=== PATIENT | male | born 1945 | race Caucasian/White ===

== ENCOUNTER → 2016-10-27 | Outpatient (CLI) | payer MEDICARE, OTHER ==
[~2016-10-27] MED LIST: ASPI-906 PO; DCS100C PO; GEMF600T3 PO; HYDR-3454 PO; HYDR-3583 PO; HYDR1TAB8 OP; LEVO500T69 PO; MTF500T PO
--- OUTSIDE RECORDS SUMMARY | 2016-10-27 10:05 | XMS REPORT | Continuity of Care Document ---
Author Author [facility] Organization [facility] Address Unknown Phone Unavailable Care Team Providers Care Traveling Crane Operator Name Role Phone Oscar Ho PCP [phone] Source Comments Some departments are not documenting in the electronic medical record. If you do not see the information that you expected, contact Release of Information in the Health Information Management department at [phone] for further assistance in locating additional records.[facility] Active Allergies and Adverse Reactions No Known Allergies Current Medications Prescription Sig. Disp. Refills Start End Date Status Date gemfibrozil (LOPID) 600 Take 600 mg by mouth Active mg tablet daily. Take two daily METFORMIN HCL (METFORMIN Take by mouth daily. Active PO) Take two daily Active Problems No known active problems Social History Tobacco Use Types Packs/Day Years Used Date Never Assessed Last Filed Vital Signs Vital Sign Reading Time Taken Blood Pressure 142/118 12/07/2012 12:37 PM CDT Pulse 70 12/07/2012 12:37 PM CDT Temperature 36.5 C (97.7 F) 12/07/2012 10:51 AM CDT Respiratory Rate - - Height 1.626 m (5' 4") 12/07/2012 10:51 AM CDT Weight 59.875 kg (132 lb) 12/07/2012 10:51 AM CDT Body Mass Index 22.65 12/07/2012 10:51 AM CDT Oxygen Saturation 99% 12/07/2012 12:37 PM CDT Plan of Care Health Maintenance Due Date Last Done Comments Hepatitis C Screening 1945 Physical (Comprehensive) 1952 Exam Pertussis Vaccine 1956 Tetanus Vaccine 1962 Shingles Vaccine 2005 Prevnar/Pneumovax (#1) 2010 Influenza Vaccine 04/21/2016 Colorectal Cancer 06/29/2025 06/29/2015, 12/07/2012, 12/07/2012 Screening Results from Last 3 Months Not on file
--- NOTE | 2016-10-27 16:26 | Diagnostic Imaging Report ---
PA and lateral chest at 10:07 a.m. INDICATION: Cough. FINDINGS: There are no prior studies available for comparison. The heart size is within normal limits. The lungs are clear. There is no sign of failure, pneumonia, or pleural effusion to suggest an acute abnormality. The mediastinum is not widened. The osseous structures are intact. IMPRESSION: There is no evidence for an acute cardiopulmonary abnormality. Dictated by: Dictated on workstation # [id number]
== END ==
LOC: RAD 10:02
PROVIDERS: ATTEND Internal Medicine
DX: R05 Cough (principal)
CPT/HCPCS: 71020

== ENCOUNTER 2017-09-04 00:39 | Emergency (ER) | payer MEDICARE, OTHER ==
[~2017-09-04] VITALS: Ht 162.6 cm; Wt 61.2 kg
--- OUTSIDE RECORDS SUMMARY | 2017-09-04 00:54 | XMS REPORT | Clinical Summary ---
Author Author [facility] Organization [facility] Address Unknown Phone Unavailable Care Team Providers Care Silviculturist Name Role Phone PCP Unavailable Source Comments Some departments are not documenting in the electronic medical record. If you do not see the information that you expected, contact Release of Information in the Health Information Management department at [phone] for further assistance in locating additional records.[facility] Allergies No Known Allergies Current Medications Prescription Sig. Disp. Refills Start End Date Status Date gemfibrozil (LOPID) 600 Take 600 mg by mouth Active mg tablet daily. Take two daily METFORMIN HCL (METFORMIN Take by mouth daily. Active PO) Take two daily Active Problems No known active problems Social History Tobacco Use Types Packs/Day Years Used Date Never Assessed Sex Assigned at Date Recorded Not on file Last Filed Vital Signs Vital Sign Reading Time Taken Blood Pressure 142/118 12/07/2012 12:37 PM CDT Pulse 70 12/07/2012 12:37 PM CDT Temperature 36.5 C (97.7 F) 12/07/2012 10:51 AM CDT Respiratory Rate - - Oxygen Saturation 99% 12/07/2012 12:37 PM CDT Inhaled Oxygen - - Concentration Weight 59.9 kg (132 lb) 12/07/2012 10:51 AM CDT Height 162.6 cm (5' 4") 12/07/2012 10:51 AM CDT Body Mass Index 22.66 12/07/2012 10:51 AM CDT Plan of Treatment Health Maintenance Due Date Last Done Comments HEPATITIS C SCREENING 1945 PHYSICAL (COMPREHENSIVE) 1952 EXAM PERTUSSIS VACCINE 1956 TETANUS VACCINE 1962 SHINGLES VACCINE 2005 PREVNAR/PNEUMOVAX (#1) 2010 INFLUENZA VACCINE 03/21/2017 COLORECTAL CANCER 06/29/2025 06/29/2015, 12/07/2012, 12/07/2012 SCREENING Results Not on filefrom Last 3 Months
--- OUTSIDE RECORDS SUMMARY | 2017-09-04 00:55 | XMS REPORT | Continuity of Care Document ---
Author Author [facility] Organization [facility] Address Unknown Phone Unavailable Allergies Active Description Code Type Severity Reaction Onset Reported/Identified Relationship to Patient Clinical Status Yes No Known Drug Allergies [id number] Drug Allergy Unknown N/A 10/14/2011 Medications There is no data. Problems Date Dx Coded Attending Type Code Diagnosis Diagnosed By 10/14/2011 Ot 211.3 10/14/2011 Ot 250.00 10/14/2011 Ot V76.51 11/17/2011 Ot 211.3 11/17/2011 Ot 250.00 11/17/2011 Ot 272.0 11/17/2011 Ot 275.2 11/17/2011 Ot 285.1 11/17/2011 Ot 998.11 02/18/2014 ASHLYN MCCARTNEY DO Ot 250.00 02/18/2014 ASHLYN MCCARTNEY DO Ot 574.20 02/18/2014 ASHLYN MCCARTNEY DO Ot 592.0 02/18/2014 ASHLYN MCCARTNEY DO Ot 599.70 02/18/2014 ASHLYN MCCARTNEY DO Ot V58.62 02/18/2014 ASHLYN MCCARTNEY DO Ot V58.69 05/13/2014 ANU DELGADILLO DO Ot 401.9 HYPERTENSION NOS 05/13/2014 ANU DELGADILLO DO Ot 574.20 CHOLELITHIASIS NOS 05/13/2014 ANU DELGADILLO DO Ot 575.0 ACUTE CHOLECYSTITIS 12/24/2014 GHAZALA RUBIO DO Ot 814.06 FX TRAPEZOID BONE-CLOSED 12/24/2014 GHAZALA RUBIO DO Ot 816.00 FX PHALANX, HAND NOS-CL 12/24/2014 GHAZALA RUBIO DO Ot 959.5 FINGER INJURY NOS 12/24/2014 GHAZALA RUBIO DO Ot E000.8 OTHER EXTERNAL CAUSE STATUS 12/24/2014 GHAZALA RUBIO DO Ot E849.0 ACCIDENT IN HOME 12/24/2014 GHAZALA RUBIO DO Ot E885.9 FALL FROM SLIPPING, TRIPPING, OR STUMBLI 12/26/2014 Ot V72.84 12/26/2014 Ot 211.3 12/26/2014 Ot V72.63 10/27/2016 Ot R05 COUGH 11/23/2016 Ot R05 COUGH 02/08/2017 Ot R05 COUGH Procedures There is no data. Results There is no data. Encounters ACCT No. Visit Date/Time Discharge Status Pt. Type Provider Facility Loc./Unit Complaint [id number] 12/23/2014 23:57:00 12/24/2014 01:20:00 DIS Emergency GHAZALA RUBIO DO [facility] ER RT HAND/THUMB PAIN [id number] 05/12/2014 02:55:00 05/13/2014 19:27:00 DIS Outpatient ANU DELGADILLO DO [facility] SDC RUQ PAIN [id number] 02/18/2014 16:10:00 02/18/2014 19:33:00 DIS Emergency ASHLYN MCCARTNEY DO [facility] ER [id number] 01/03/2013 11:18:00 01/03/2013 23:59:59 CLS Outpatient [id number] 09/04/2017 00:51:00 ACT Emergency JULIENNE WOMACK MD [facility] ER CHEST PAIN DIZZY [id number] 10/27/2016 10:02:00 Document Registration [id number] 11/10/2011 05:52:00 Document Registration [id number] 11/03/2011 09:18:00 Document Registration [id number] 10/14/2011 11:31:00 Document Registration [id number] 10/12/2011 08:27:00 Document Registration
[2017-09-04] MEDS ORDERED: ASPIRIN 81 MG CHEW (CHILDREN'S ASA) PO ONE (01:00)
[2017-09-04 01:11] LABS: BASOPHILS % (AUTO) 1 % (0-10); EOSINOPHILS # (AUTO) 0.2 10^3/uL (0.0-0.3); EOSINOPHILS % (AUTO) 3 % (0-10); HEMATOCRIT 41 % (40-54); LYMPHOCYTES # (AUTO) 3.5 X 10^3 (1.0-4.0); LYMPHOCYTES % (AUTO) 43 % (12-44); MEAN CORPUSCULAR HEMOGLOBIN 32 PG (25-34); MEAN CORPUSCULAR HGB CONC 36 G/DL (32-36); MEAN CORPUSCULAR VOLUME 88 FL (80-99); MEAN PLATELET VOLUME 9.7 FL (7.4-10.4); MONOCYTES # (AUTO) 0.7 X 10^3 (0.0-1.0); MONOCYTES % (AUTO) 9 % (0-12); NEUTROPHILS # (AUTO) 3.6 X 10^3 (1.8-7.8); NEUTROPHILS % (AUTO) 45 % (42-75); PLATELET COUNT 235 10^3/uL (130-400); RED BLOOD COUNT 4.71 10^6/uL (4.35-5.85); RED CELL DISTRIBUTION WIDTH 12.7 % (10.0-14.5)
--- NOTE | 2017-09-04 01:12 | ED Chest Pain ---
General Chief Complaint: Chest Pain Stated Complaint: CHEST PAIN DIZZY Nursing Triage Note: PT TO ED 3 W/ C/O CHEST PAIN, INTERMITTENT, X1WK, WORSE THIS EVENING HE STATES "HE CAN'T SLEEP" DUE TO DISCOMFORT. DENIES SOB, N/V, DIAPHORESIS Nursing Sepsis Screen: No Definite Risk Source: patient Exam Limitations: no limitations History of Present Illness Time seen by provider: 00:48 Initial Comments Here with reports of central chest pain that comes on for a little bit the goes away. Describes it as an ache. Nonradiating. Denies nausea, vomiting, diaphoresis or shortness of breath. States he's had increasing episodes of this over the last week. They're coming more frequently. Also concerned about high blood pressure. States his doctor told him that he might have high blood pressure and may need treatment for that but has not started blood pressure treatment as of yet. Timing/Duration: 1 week, changing over time, intermittent Severity/Quality: moderate, aching Location: central Radiation: no radiation Activities at Onset: none Prior CP/Workup: no prior cardiac workup ASA po MEDICAL REVIEW SPECIALIST: Yes (81 mg) NTG SL MEDICAL REVIEW SPECIALIST: No Associated Symptoms: No abdominal pain, No back pain, No fever/chills, No shortness of breath Allergies and Home Medications Allergies Coded Allergies: No Known Drug Allergies (Unverified , 10/14/11) Home Medications Aspirin 81 Mg Tab.chew, 81 MG PO DAILY @ 1800, (Reported) Gemfibrozil 600 Mg Tablet, 600 MG PO BID, (Reported) Hydrocodone Bit/Ibuprofen 1 Each Tablet, 1 EACH OP Q 4 - 6 HRS PRN PRN for PAIN , #20 Prescribed by: GHAZALA RUBIO on 12/24/14 0114 Metformin Hcl 500 Mg Tablet, 500 MG PO BID, (Reported) Review of Systems Constitutional: see HPI, No chills, No fever, No weakness EENTM: No Symptoms Reported Respiratory: No Symptoms Reported, Denies Shortness of Air, Denies Wheezing Cardiovascular: See HPI, Chest Pain, Denies Irregular Heart Rate Gastrointestinal: No Symptoms Reported, Denies Nausea, Denies Vomiting Genitourinary: No Symptoms Reported Musculoskeletal: no symptoms reported Skin: no symptoms reported All Other Systems Reviewed Negative Unless Noted: Yes Past Tsvpbkc-Yqonow-Xvykek Hx Patient Social History Alcohol Use: Denies Use Recreational Drug Use: No Smoking Status: Never a Smoker Recent Foreign Travel: No Contact w/Someone Who Travel: No Recent Infectious Disease Expo: No Recent Hopitalizations: No Physical Abuse: No Sexual Abuse: No Mistreated: No Fear: No Immunizations Up To Date Date of Influenza Vaccine: May 21, 2010 Surgeries History of Surgeries: Yes (HERNIA, COLON REPAIR) Surgeries: Abdominal, Gallbladder Respiratory History of Respiratory Disorde: No Cardiovascular History of Cardiac Disorders: Yes Cardiac Disorders: High Cholesterol Neurological History of Neurological Disord: No Reproductive System Hx Reproductive Disorders: No Gastrointestinal History of Gastrointestinal Di: No Musculoskeletal History of Musculoskeletal Dis: No Endocrine History of Endocrine Disorders: Yes Endocrine Disorders: Diabetes, Non-Insulin dep Cancer History of Cancer: No Psychosocial History of Psychiatric Problem: No Suicide Risk Score: 0 Blood Transfusions History of Blood Disorders: No Reviewed Nursing Assessment Reviewed/Agree w Nursing PMH: Yes Family Medical History Significant Family History: No Pertinent Family Hx Physical Exam Vital Signs Vital Sign - Last 12Hours 09/04/17 00:39 Temp 97.1 Pulse 68 Resp 20 B/P (MAP) 189/106 (133) Pulse Ox 96 O2 Delivery Room Air Capillary Refill : Less Than 3 Seconds General Appearance: No Apparent Distress, WD/WN HEENT: PERRL/EOMI, Pharynx Normal Neck: Non Tender, Supple Respiratory: Lungs Clear, Normal Breath Sounds Cardiovascular: Regular Rate, Rhythm, No Murmur Gastrointestinal: Non Tender, Soft Extremity: Normal Range of Motion, Non Tender Neurologic/Psychiatric: Alert, Oriented x3 Skin: Normal Color, Warm/Dry Progress/Results/Core Measures Results/Orders Lab Results Laboratory Tests Test 09/04/17 01:01 09/04/17 03:25 Range/Units White Blood Count 8.0 4.3-11.0 10^3/uL Red Blood Count 4.71 4.35-5.85 10^6/uL Hemoglobin 15.0 13.3-17.7 G/DL Hematocrit 41 40-54 % Mean Corpuscular Volume 88 80-99 FL Mean Corpuscular Hemoglobin 32 25-34 PG Mean Corpuscular Hemoglobin Concent 36 32-36 G/DL Red Cell Distribution Width 12.7 10.0-14.5 % Platelet Count 235 130-400 10^3/uL Mean Platelet Volume 9.7 7.4-10.4 FL Neutrophils (%) (Auto) 45 42-75 % Lymphocytes (%) (Auto) 43 12-44 % Monocytes (%) (Auto) 9 0-12 % Eosinophils (%) (Auto) 3 0-10 % Basophils (%) (Auto) 1 0-10 % Neutrophils # (Auto) 3.6 1.8-7.8 X 10^3 Lymphocytes # (Auto) 3.5 1.0-4.0 X 10^3 Monocytes # (Auto) 0.7 0.0-1.0 X 10^3 Eosinophils # (Auto) 0.2 0.0-0.3 10^3/uL Basophils # (Auto) 0.0 0.0-0.1 10^3/uL Prothrombin Time 14.5 12.2-14.7 SEC INR Comment 1.1 0.8-1.4 Activated Partial Thromboplast Time 32 24-35 SEC Sodium Level 139 135-145 MMOL/L Potassium Level 4.0 3.6-5.0 MMOL/L Chloride Level 104 98-107 MMOL/L Carbon Dioxide Level 23 21-32 MMOL/L Anion Gap 12 5-14 MMOL/L Blood Urea Nitrogen 22 H 7-18 MG/DL Creatinine 1.04 0.60-1.30 MG/DL Estimat Glomerular Filtration Rate > 60 BUN/Creatinine Ratio 21 Glucose Level 176 H 70-105 MG/DL Calcium Level 9.8 8.5-10.1 MG/DL Magnesium Level 2.3 1.8-2.4 MG/DL Total Bilirubin 0.4 0.1-1.0 MG/DL Aspartate Amino Transf (AST/SGOT) 18 5-34 U/L Alanine Aminotransferase (ALT/SGPT) 16 0-55 U/L Alkaline Phosphatase 90 40-136 U/L Myoglobin 22.1 10.0-92.0 NG/ML Troponin I < 0.30 < 0.30 <0.30 NG/ML Total Protein 7.6 6.4-8.2 GM/DL Albumin 4.4 3.2-4.5 GM/DL My Orders Orders - JULIENNE WOMACK MD Cbc With Automated Diff (09/04/17 00:49) Magnesium (09/04/17 00:49) Ekg Tracing (09/04/17 00:49) Cardiac Profile 1 (09/04/17 00:49) Comprehensive Metabolic Panel (09/04/17 00:49) Myoglobin Serum (09/04/17 00:49) Protime With Inr (09/04/17 00:49) Partial Thromboplastin Time (09/04/17 00:49) O2 (09/04/17 00:49) Monitor-Rhythm Ecg Trace Only (09/04/17 00:49) Lipid Panel (09/05/17 06:00) Aspirin Chewable Tablet (Baby Aspirin Ch (09/04/17 01:00) Saline Lock/Iv-Start (09/04/17 00:49) Metoprolol Succinate (Xl) Tab (Toprol Xl (09/04/17 01:15) Chest 1 View, Ap/Pa Only (09/04/17 ) Ekg Tracing (09/04/17 03:05) Troponin I (09/04/17 03:05) Medications Given in ED Current Medications Medications Dose Ordered Sig/Yuliana Route Start Time Stop Time Status Last Admin Dose Admin Aspirin 324 mg ONCE ONCE PO 09/04/17 01:00 09/04/17 01:01 DC 09/04/17 01:01 324 MG Vital Signs/I&O Vital Sign - Last 12Hours 09/04/17 00:39 Temp 97.1 Pulse 68 Resp 20 B/P (MAP) 189/106 (133) Pulse Ox 96 O2 Delivery Room Air Blood Pressure Mean: 133 Progress Note : Progress Note Seen and evaluated. Chest pain protocol initiated. ASA 324 mg by mouth, labs, EKG, chest x-ray and IV initiated. No pain right now so no nitroglycerin ordered. Monitor patient. Toprol-XL 50 mg by mouth ordered. Monitor patient. Blood pressure improved significantly after Toprol-XL. Monitor patient. 0230 : Pain remains resolved and blood pressure improved. We will repeat troponin and EKG. 0400: Blood pressure 133/83 and heart rate of 55. Remains pain free. Repeat troponin and EKG remain negative for acute DE. Discharged home with return precautions. Patient verbalize understanding instructions and agreement with plan. ECG Initial ECG Impression Date: Sep 04, 2017 Initial ECG Impression Time: 00:50 Initial ECG Rate: 70 Initial ECG Rhythm: Normal Sinus Comment Sinus rhythm with normal axis. No evidence of ST elevation DE. No previous available for comparison. Interpreted by me. EKG : EKG Time: 03:18 Rate: 59 Rhythm: Normal Sinus ECG Comparisson: Unchanged ECG Impression: Normal Comment Sinus rhythm with normal axis. No evidence of ST elevation DE. Similar to previous done earlier today. Interpreted by me. Diagnostic Imaging Diagonstic Imaging: Xray Plain Films/CT/US/NM/MRI: chest Comments No acute findings Departure Impression Impression: Primary Impression: Chest pain Qualified Codes: R07.9 - Chest pain, unspecified Additional Impression: Hypertension Qualified Codes: I10 - Essential (primary) hypertension Disposition: HOME, SELF-CARE Condition: Improved Departure-Patient Inst. Decision time for Depature: 04:06 Referrals: JOSE ARANGO MD FACP FACC CCDS Abel DURAN MD, BASHAR J MD TAYLOR, JOHN D MD (PCP/Family) Primary Care Physician Patient Instructions: Chest Pain (DC) Add. Discharge Instructions: All discharge instructions reviewed with patient and/or family. Voiced understanding. Take medications as directed. Follow-up with your Dr. in one to 2 days for recheck and further evaluation. Follow-up with Dr. Duran or market research coordinator of your choice within one week for recheck and further evaluation. Return for worse pain, fever, vomiting, weakness, breathing problems or other concerns as needed. Scripts Metoprolol Succinate (Toprol Xl) 25 Mg Tab.er.24h 25 MG PO DAILY for 30 Days, #30 TAB Prov: JULIENNE WOMACK MD 09/04/17 Copy Copies To 1: ISAIAS CARNEY MD, TIMOTHY D MD Sep 04, 2017 01:12
[2017-09-04] MEDS ORDERED: meTOproloL SUCCINATE 50 MG (TOPROL XL) TAB PO SCH (01:15)
[2017-09-04 01:20] LABS: INR 1.1 (0.8-1.4); PROTHROMBIN TIME PATIENT 14.5 SEC (12.2-14.7)
[2017-09-04 01:28] LABS: ALANINE AMINOTRANSFERASE 16 U/L (0-55); ALBUMIN 4.4 GM/DL (3.2-4.5); ALKALINE PHOSPHATASE 90 U/L (40-136); BILIRUBIN,TOTAL 0.4 MG/DL (0.1-1.0); BUN/CREATININE RATIO 21; CALCIUM 9.8 MG/DL (8.5-10.1); CARBON DIOXIDE 23 MMOL/L (21-32); CHLORIDE 104 MMOL/L (98-107); CREATININE SERUM 1.04 MG/DL (0.60-1.30); GFR ESTIMATED > 60; GLUCOSE 176 MG/DL (70-105); MAGNESIUM 2.3 MG/DL (1.8-2.4); SODIUM 139 MMOL/L (135-145); TOTAL PROTEIN 7.6 GM/DL (6.4-8.2)
[2017-09-04 01:35] LABS: MYOGLOBIN SERUM 22.1 NG/ML (10.0-92.0)
[2017-09-04] MEDS ORDERED: METO-351 PO (04:09)
[2017-09-04 04:25] VITALS: BP 141/88
--- NOTE | 2017-09-04 07:42 | Diagnostic Imaging Report ---
INDICATION: Chest pain COMPARISON: 10/27/2016 FINDINGS: Upright portable view of the chest is obtained. Heart size is normal. The pulmonary vessels appear unremarkable. There is no pneumothorax, mediastinal widening or pleural fluid demonstrated. The lungs are clear. IMPRESSION: No acute abnormalities demonstrated. Dictated by: Dictated on workstation # [id number]
== END 2017-09-04 04:25 | disposition home or self-care (01) ==
LOC: EDUNIT# 00:47 → ER 00:51
DX: R07.89 Other chest pain (principal); I10 Essential (primary) hypertension; E78.00 Pure hypercholesterolemia, unspecified; E11.9 Type 2 diabetes mellitus without complications; Z79.82 Long term (current) use of aspirin; Z79.84 Long term (current) use of oral hypoglycemic drugs; Z87.19 Personal history of other diseases of the digestive system
CPT/HCPCS: 36415; 71045; 80053; 83735; 83874; 84484; 85025; 85610; 85730; 93005; 93041

== ENCOUNTER 2022-07-24 14:55 | Inpatient (IN) | payer MEDICARE, OTHER ==
[2022-07-24] VITALS (9 sets, daily range): BP systolic 95–111; BP diastolic 58–72
[~2022-07-24] VITALS: Ht 162 cm; Wt 57.0 kg
[~2022-07-24 14:55] MED LIST changes: +METO-351 PO
[2022-07-24] MEDS ORDERED: ASPIRIN 81 MG CHEW (CHILDREN'S ASA) PO ONE (15:15)
[2022-07-24 15:24] LABS: BASOPHILS % (AUTO) 1 % (0-10); EOSINOPHILS # (AUTO) 0.2 10^3/uL (0.0-0.3); EOSINOPHILS % (AUTO) 3 % (0-10); HEMATOCRIT 37 % (40-54); LYMPHOCYTES # (AUTO) 2.6 10^3/uL (1.0-4.0); LYMPHOCYTES % (AUTO) 32 % (12-44); MEAN CORPUSCULAR HEMOGLOBIN 32 pg (25-34); MEAN CORPUSCULAR HGB CONC 35 g/dL (32-36); MEAN CORPUSCULAR VOLUME 90 fL (80-99); MONOCYTES # (AUTO) 0.8 10^3/uL (0.0-1.0); MONOCYTES % (AUTO) 10 % (0-12); NEUTROPHILS # (AUTO) 4.3 10^3/uL (1.8-7.8); NEUTROPHILS % (AUTO) 54 % (42-75); PLATELET COUNT 238 10^3/uL (130-400)
[2022-07-24 15:39] LABS: POTASSIUM 3.5 MMOL/L (3.6-5.0)
[2022-07-24 15:40] LABS: CALCIUM 9.5 MG/DL (8.5-10.1)
[2022-07-24 15:41] LABS: TOTAL PROTEIN 7.4 GM/DL (6.4-8.2)
[2022-07-24 15:43] LABS: BILIRUBIN,TOTAL 0.4 MG/DL (0.1-1.0)
[2022-07-24 15:45] LABS: CREATININE SERUM 1.34 MG/DL (0.60-1.30)
[2022-07-24 15:46] LABS: PROTHROMBIN TIME PATIENT 14.1 SEC (12.2-14.7)
[2022-07-24 15:47] LABS: MAGNESIUM 1.9 MG/DL (1.6-2.4)
--- NOTE | 2022-07-24 15:48 | Diagnostic Imaging Report ---
CHEST 1 VIEW, AP/PA ONLY Indication: Chest pain. Comparison: 09/04/2017 Findings: No focal airspace disease in the visualized lungs. No pleural effusion or pneumothorax. Normal cardiomediastinal silhouette. Impression: 1. No acute cardiopulmonary process by portable radiography. Dictated by: Dictated on workstation # [id number]
[2022-07-24] MEDS ORDERED: NITROGLYCERIN 2% OINT 1 GM UNIT DOSE PACKET TOP ONE (16:15)
[2022-07-24] MEDS ORDERED: HEParin 1000 UNIT/ML (10ML VIAL) FOR BOLUS IV SCH (16:15)
[2022-07-24] MEDS ORDERED: CLOPIDOGREL 300 MG (PLAVIX) TABLET PO ONE ×2 (16:15→18:22)
--- NOTE | 2022-07-24 16:18 | ED Chest Pain ---
General Chief Complaint: Chest Pain Stated Complaint: CHEST/LEFT ARM PAIN/SOA Nursing Triage Note: ARRIVED VIA AMB TO ROOM 03 WITH COMPLAINTS OF CHEST PAIN OFF AND ON FOR ONE WEEK THAT IS WORSE TODAY AND GOING DOWN LEFT ARM. Source: patient Exam Limitations: no limitations History of Present Illness Date Seen by Provider: Jul 24, 2022 Time Seen by Provider: 16:15 Initial Comments Patient is a 77-year-old male who presents to the emergency department with chest pain for approximately 1 week. He states the pain has been intermittent. He describes the pain is achy in nature. He states the pain is typically in the center of his chest. States he had an episode of more severe pain earlier today which prompted presentation to the emergency department. He states the pain began to radiate into his left shoulder. States the pain is significantly improved from prior today upon arrival to the ER. He rates his pain currently is 2 out of 10. Patient denies any history of ACS and states he has never seen a best worker in the past. Patient has a history of diabetes, hype rcholesterolemia, and hypertension. States he has had a few episodes of diaphoresis with the chest pain. Denies any worsening of the pain with exertion. Denies any dependent edema in the recent past. Denies any recent URI symptoms. Allergies and Home Medications Allergies Coded Allergies: No Known Drug Allergies (Unverified , 10/14/11) Patient Home Medication List Home Medication List Reviewed: Yes Aspirin (Dasia Chewable) 81 Mg Tab.chew, 81 MG PO DAILY @ 1800, (Reported) Entered as Reported by: DONITA LANTIGUA on 05/12/14 0926 Gemfibrozil (Gemfibrozil) 600 Mg Tablet, 600 MG PO BID, (Reported) Entered as Reported by: CECE RIVERA on 10/12/11 1215 Hydrocodone Bit/Ibuprofen (Vicoprofen 200-7.5 Mg Tab) 1 Each Tablet, 1 EACH OP Q 4 - 6 HRS PRN PRN for PAIN Prescribed by: GHAZALA RUBIO on 12/24/14 0114 Metformin Hcl (Metformin 500 Mg) 500 Mg Tablet, 500 MG PO BID, (Reported) Entered as Reported by: CECE RIVERA on 10/12/11 1215 Metoprolol Succinate (Toprol Xl) 25 Mg Tab.er.24h, 25 MG PO DAILY Prescribed by: JULIENNE WOMACK on 09/04/17 0409 Review of Systems Review of Systems Constitutional: no symptoms reported EENTM: No Symptoms Reported Respiratory: No Symptoms Reported Cardiovascular: See HPI, Chest Pain Gastrointestinal: No Symptoms Reported Genitourinary: No Symptoms Reported Musculoskeletal: no symptoms reported Skin: no symptoms reported Psychiatric/Neurological: No Symptoms Reported Endocrine: No Symptoms Reported Hematologic/Lymphatic: No Symptoms Reported Past Dfhjmfk-Cfynvl-Csjnrd Hx Patient Social History Tobacco Use?: No Substance use?: No Alcohol Use?: No Immunizations Up To Date Second COVID19 Vaccination Juancarlos: UNKNOWN 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 oz. 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 Skin: Normal Color, Warm/Dry Progress/Results/Core Measures Results/Orders Lab Results Laboratory Tests Test 07/24/22 15:17 Range/Units White Blood Count 8.0 4.3-11.0 10^3/uL Red Blood Count 4.10 L 4.30-5.52 10^6/uL Hemoglobin 13.0 L 13.3-17.7 g/dL Hematocrit 37 L 40-54 % Mean Corpuscular Volume 90 80-99 fL Mean Corpuscular Hemoglobin 32 25-34 pg Mean Corpuscular Hemoglobin Concent 35 32-36 g/dL Red Cell Distribution Width 12.3 10.0-14.5 % Platelet Count 238 130-400 10^3/uL Mean Platelet Volume 10.0 9.0-12.2 fL Immature Granulocyte % (Auto) 1 % Neutrophils (%) (Auto) 54 42-75 % Lymphocytes (%) (Auto) 32 12-44 % Monocytes (%) (Auto) 10 0-12 % Eosinophils (%) (Auto) 3 0-10 % Basophils (%) (Auto) 1 0-10 % Neutrophils # (Auto) 4.3 1.8-7.8 10^3/uL Lymphocytes # (Auto) 2.6 1.0-4.0 10^3/uL Monocytes # (Auto) 0.8 0.0-1.0 10^3/uL Eosinophils # (Auto) 0.2 0.0-0.3 10^3/uL Basophils # (Auto) 0.0 0.0-0.1 10^3/uL Immature Granulocyte # (Auto) 0.0 0.0-0.1 10^3/uL Prothrombin Time 14.1 12.2-14.7 SEC INR Comment 1.0 0.8-1.4 Activated Partial Thromboplast Time 34 24-35 SEC Sodium Level 137 135-145 MMOL/L Potassium Level 3.5 L 3.6-5.0 MMOL/L Chloride Level 102 98-107 MMOL/L Carbon Dioxide Level 21 21-32 MMOL/L Anion Gap 14 5-14 MMOL/L Blood Urea Nitrogen 20 H 7-18 MG/DL Creatinine 1.34 H 0.60-1.30 MG/DL Estimat Glomerular Filtration Rate 55 BUN/Creatinine Ratio 15 Glucose Level 185 H 70-105 MG/DL Calcium Level 9.5 8.5-10.1 MG/DL Corrected Calcium 9.5 8.5-10.1 MG/DL Magnesium Level 1.9 1.6-2.4 MG/DL Total Bilirubin 0.4 0.1-1.0 MG/DL Aspartate Amino Transf (AST/SGOT) 28 5-34 U/L Alanine Aminotransferase (ALT/SGPT) 11 0-55 U/L Alkaline Phosphatase 95 40-136 U/L Troponin I 3.635 *H <0.028 NG/ML Total Protein 7.4 6.4-8.2 GM/DL Albumin 4.0 3.2-4.5 GM/DL My Orders Orders - ALEXANDRA ALVARADO [employer] Cbc With Automated Diff (07/24/22 15:07) Magnesium (07/24/22 15:07) Chest 1 View, Ap/Pa Only (07/24/22 15:07) Ekg Tracing (07/24/22 15:07) Comprehensive Metabolic Panel (07/24/22 15:07) Protime With Inr (07/24/22 15:07) Partial Thromboplastin Time (07/24/22 15:07) O2 (07/24/22 15:07) Monitor-Rhythm Ecg Trace Only (07/24/22 15:07) Ed Iv/Invasive Line Start (07/24/22 15:07) Troponin I Raza (07/24/22 15:07) Aspirin Chewable Tablet (Baby Aspirin Ch (07/24/22 15:15) Nitroglycerin Ointment (Nitrobid Ointme (07/24/22 16:15) Clopidogrel Tablet (Plavix Tablet) (07/24/22 16:15) Heparin (Bolus Per Protocol) (Heparin (B (07/24/22 16:15) Heparin Drip 33089 Unit/500ml (Heparin (07/24/22 16:15) Cbc No Diff (07/27/22 05:00) Cbc No Diff (07/30/22 05:00) Protime With Inr (07/27/22 05:00) Initiate Heparin Acs Protocol (07/24/22 16:12) Heparin (Bolus Per Protocol) (Heparin (B (07/24/22 16:30) Initiate Heparin Acs Protocol (07/24/22 16:26) Ed Admission (Communication) (07/24/22 16:28) Medications Given in ED Current Medications Medications Dose Ordered Sig/Yuliana Route Start Time Stop Time Status Last Admin Dose Admin Aspirin 324 mg ONCE ONCE PO 07/24/22 15:15 07/24/22 15:16 DC 07/24/22 15:31 324 MG Clopidogrel Bisulfate 300 mg ONCE ONCE PO 07/24/22 16:15 07/24/22 16:16 DC 07/24/22 16:32 300 MG Nitroglycerin 1 inch ONCE ONCE TOP 07/24/22 16:15 07/24/22 16:16 DC 07/24/22 16:04 1 INCH Vital Signs/I&O 07/24/22 14:55 Temp 36.3 Pulse 66 Resp 16 B/P (MAP) 139/87 (104) Blood Pressure Mean: 104 Progress Progress Note : Progress Note Patient is nontoxic and well-hydrated on exam. States his pain is very mild compared to earlier today. Denies any shortness of breath. No adventitious lung sounds or increased work of breathing noted on exam. Initial EKG notable for some lateral ST depression and V3 and V4 and to a lesser degree V5. Possible pathologic Q waves noted in the inferior leads. Chest x-ray acutely negative. Laboratory evaluation notable for markedly elevated troponin. I spoke with cardiology (Dr. Argueta) who states patient will be taken to the [facility]. Patient was given aspirin, Plavix, Nitropaste, and was heparinized with a bolus and drip. I consulted hospitalist for management of patient's existing medical issues. EKG : EKG Time: 15:00 Rate: 67 Rhythm: Normal Sinus Comment ST depression in lateral leads (v3-v5); inferior q waves Departure Impression Primary Impression: NSTEMI (non-ST elevated myocardial infarction) Disposition: ADMITTED INPATIENT Condition: Stable Departure-Patient Inst. Referrals: ISAIAS CARNEY MD (PCP/Family) Primary Care Physician ALEXANDRA ALVARADO APRN Jul 24, 2022 16:18
[2022-07-24] MEDS ORDERED: HEParin 1000 UNIT/ML (10ML VIAL) FOR BOLUS IV PRN (16:30)
[2022-07-24] MEDS: HEParin DRIP 25000 UNIT/500ML 500 ML IV SCH ×2 (16:34→16:56)
[2022-07-24] MEDS ORDERED: fentaNYL INJ 100 MCG/2 ML AMP ONE (16:38)
[2022-07-24] MEDS ORDERED: HEParin (CATH LAB) 2,000 ML IV ONE (16:38)
[2022-07-24] MEDS ORDERED: MIDAZOLAM 5 MG/5 ML (VERSED) VIAL ONE (16:38)
[2022-07-24] MEDS ORDERED: NS IV 1000 ML 0 ML ONE (16:38)
[2022-07-24] MEDS ORDERED: HEParin 1000 UNIT/ML (10ML VIAL) FOR BOLUS ONE (16:38)
[2022-07-24] MEDS ORDERED: NITRO DRIP 25000 MCG/D5W 250 ML IV ONE (16:38)
[2022-07-24] MEDS ORDERED: EPTIFIBATIDE BOLUS 20 ML IV ONE (16:39)
[2022-07-24] MEDS ORDERED: LIDOCAINE 1% INJ 30 ML (XYLOCAINE) VIAL ONE (16:39)
[2022-07-24] MEDS ORDERED: NS IV 1000 ML 1,000 ML ONE ×2 (18:18→20:24)
[2022-07-24] MEDS ORDERED: ASPIRIN 81 MG CHEW (CHILDREN'S ASA) ONE (18:22)
[2022-07-24] MEDS ORDERED: PATIENT MAY USE OWN MEDS, ALL PO SCH (18:45)
--- NOTE | 2022-07-24 18:57 | Cardiology History & Physical ---
HPI-Cardiology Cardiology H&P Date of Admission 07/24/22 Primary Care Physician Admitting Physician: Attending Physician: Fahad Argueta MD [facility] Attending Physician Fahad Argueta MD, MA [facility] Consulting Physician HPI 77 yo man with a week or intermittent chest pain, mild to mod severe, midsternal, sometimes associated with diaphoresis, worse with exertion, better with rest, nonradiating, occurring several times a day and lasting up to 15-20 min. No palp or syncope. Exertional short of breath present. No swelling. Review of Systems-Cardiology Review of Systems Constitutional: malaise, tiredness; No weight loss, No weight gain Eyes: No vision change Ears/Nose/Throat: No ear discharge, No nasal drainage, No recent hearing loss Respiratory: As described under HPI Cardiovascular: As described under HPI Gastrointestinal: No diarrhea, No nausea, No vomiting Genitourinary: No dysuria, No hematuria, No urine frequency changes Musculoskeletal: No back pain, No joint pain Skin: No rash, No ulcerations Psychiatric/Neurological: No seizure, No focal weakness, No syncope Hematologic: No bleeding abnormalities JRX-Sxnfnh-Vmintt Hx Patient Social History Have you traveled recently?: No Alcohol Use?: No Immunizations Up To Date Date of Influenza Vaccine: May 21, 2010 Past Medical History PMH As described under Assessment. Family Medical History Family Medical History: Does not report fam h/o early CAD or SCD Allergies and Home Medications Allergies Coded Allergies: No Known Drug Allergies (Unverified , 10/14/11) Patient Home Medication List Home Medication List Reviewed: Yes Aspirin (Dasia Chewable) 81 Mg Tab.chew, 81 MG PO DAILY @ 1800, (Reported) Entered as Reported by: DONITA LANTIGUA on 05/12/14 0926 Gemfibrozil (Gemfibrozil) 600 Mg Tablet, 600 MG PO BID, (Reported) Entered as Reported by: CECE RIVERA on 10/12/11 1215 Hydrocodone Bit/Ibuprofen (Vicoprofen 200-7.5 Mg Tab) 1 Each Tablet, 1 EACH OP Q 4 - 6 HRS PRN PRN for PAIN Prescribed by: GHAZALA RUBIO on 12/24/14 0114 Metformin Hcl (Metformin 500 Mg) 500 Mg Tablet, 500 MG PO BID, (Reported) Entered as Reported by: CECE RIVERA on 10/12/11 1215 Metoprolol Succinate (Toprol Xl) 25 Mg Tab.er.24h, 25 MG PO DAILY Prescribed by: JULIENNE WOMACK on 09/04/17 0409 Physical Exam-Cardiology Physical Exam Vital Signs/I&O 07/24/22 07/24/22 14:55 17:05 Temp 36.3 36.8 Pulse 66 Resp 16 18 B/P (MAP) 139/87 (104) 130/69 Pulse Ox 97 O2 Delivery Room Air Capillary Refill : Less Than 3 Seconds Constitutional: AAO x 3, well-developed, well-nourished HEENT: EOMI, hearing is well preserved; No xanthelasmas are seen Neck: carotid pulses are 2 + bilaterally, with good upstrokes Respiratory: No accessory muscle use; chest expansion is symmetric, chest is bilaterally symmetric, other (good, bilat air entry) Cardiovascular: regular rate-rhythm, S1 and S2, systolic murmur (soft LUKE at card base) Gastrointestinal: No tender; soft; No guarding, No rebound; audible bowel sounds Extremities: No clubbing, No cyanosis, No significant edema Neurologic/Psychiatric: oriented x 3, other (moves all limbs equally) Skin: No rash on exposed areas, No ulcerations on exposed areas Data Review Labs Laboratory Tests 07/24/22 15:17: White Blood Count 8.0, Red Blood Count 4.10L, Hemoglobin 13.0L, Hematocrit 37L, Mean Corpuscular Volume 90, Mean Corpuscular Hemoglobin 32, Mean Corpuscular Hemoglobin Concent 35, Red Cell Distribution Width 12.3, Platelet Count 238, Mean Platelet Volume 10.0, Immature Granulocyte % (Auto) 1, Neutrophils (%) (Auto) 54, Lymphocytes (%) (Auto) 32, Monocytes (%) (Auto) 10, Eosinophils (%) (Auto) 3, Basophils (%) (Auto) 1, Neutrophils # (Auto) 4.3, Lymphocytes # (Auto) 2.6, Monocytes # (Auto) 0.8, Eosinophils # (Auto) 0.2, Basophils # (Auto) 0.0, Immature Granulocyte # (Auto) 0.0, Prothrombin Time 14.1, INR Comment 1.0, Activated Partial Thromboplast Time 34, Sodium Level 137, Potassium Level 3.5L, Chloride Level 102, Carbon Dioxide Level 21, Anion Gap 14, Blood Urea Nitrogen 20H, Creatinine 1.34H, Estimat Glomerular Filtration Rate 55, BUN/Creatinine Ratio 15, Glucose Level 185H, Calcium Level 9.5, Corrected Calcium 9.5, Magnesium Level 1.9, Total Bilirubin 0.4, Aspartate Amino Transf (AST/SGOT) 28, Alanine Aminotransferase (ALT/SGPT) 11, Alkaline Phosphatase 95, Troponin I 3.635*H, Total Protein 7.4, Albumin 4.0 Laboratory Tests 07/24/22 15:17 A/P-Cardiology Assessment/Admission Diagnosis Ac NSTEMI - card cath on 07/24/22: heavy cor calcification, LMCA ok, LAD 60% ostial and prox, 99% prox dominant LCX (less than 10% post balloon angioplasty and improvement of flow from VICTOR M 1 to VICTOR M 3), diminutive RCA w/o significant disease, LVEDP 22 mmHg, LVEF 50% DM II Diabetic nephropathy: CKD 3 H/o hyperlipidemia Mild hypokalemia Admission Status: Inpatient Order (span 2 midnights) Reason for Inpatient Admission: ac OR Discussion and Recomendations * PCI to dominant LCX (done, see above) * DAPT * BB if bp tolerates * Statin * Replenish K * Continue iv fluids to reduce risk of contrast nephropathy * Monitor labs * Hosp consult for DM II and renal insuff Clinical Quality Measures AMI/AHF: ASA po Prior to arrival: FAHAD Hall MD FACP [facility] Jul 24, 2022 18:57
[2022-07-24] MEDS ORDERED: ACETAMINOPHEN 325 MG TABLET PO PRN (19:00)
[2022-07-24] MEDS ORDERED: KCL 20 MEQ TAB (K-DUR) PO ONE ×2 (19:15→20:31)
[2022-07-24] MEDS ORDERED: ENOXAPARIN 40 MG/0.4 ML (LOVENOX) SYR ONE (20:31)
[2022-07-24] MEDS: NS IV 1000 ML 1,000 ML IV SCH (20:38)
[2022-07-24] MEDS: inSUlin ASPART (NovoLOG) 1 UNIT/0.01 ML (CHARGE PER UNIT) SC SCH (21:45)
[2022-07-24] MEDS: ENOXAPARIN 40 MG/0.4 ML (LOVENOX) SYR SC SCH (22:03)
[2022-07-25] VITALS (10 sets, daily range): BP systolic 76–116; BP diastolic 48–71
[2022-07-25] MEDS ORDERED: NS IV 1000 ML 1,000 ML ONE (02:20)
[2022-07-25] MEDS: NS IV 500 ML 500 ML IV SCH ×4 (02:23→04:56)
[2022-07-25] MEDS ORDERED: NS IV 500 ML 500 ML ONE (04:53)
[2022-07-25 05:15] LABS: BASOPHILS % (AUTO) 0 % (0-10); EOSINOPHILS % (AUTO) 0 % (0-10); HEMATOCRIT 28 % (40-54); HEMOGLOBIN 9.7 g/dL (13.3-17.7); LYMPHOCYTES # (AUTO) 1.4 10^3/uL (1.0-4.0); LYMPHOCYTES % (AUTO) 14 % (12-44); MEAN CORPUSCULAR HEMOGLOBIN 32 pg (25-34); MEAN CORPUSCULAR HGB CONC 35 g/dL (32-36); MEAN CORPUSCULAR VOLUME 90 fL (80-99); MEAN PLATELET VOLUME 10.5 fL (9.0-12.2); MONOCYTES # (AUTO) 0.7 10^3/uL (0.0-1.0); MONOCYTES % (AUTO) 7 % (0-12); NEUTROPHILS # (AUTO) 8.2 10^3/uL (1.8-7.8); NEUTROPHILS % (AUTO) 79 % (42-75); PLATELET COUNT 210 10^3/uL (130-400); WHITE BLOOD COUNT 10.3 10^3/uL (4.3-11.0)
[2022-07-25 05:36] LABS: ALBUMIN 3.1 GM/DL (3.2-4.5); BILIRUBIN,TOTAL 0.5 MG/DL (0.1-1.0); CALCIUM 8.5 MG/DL (8.5-10.1); CREATININE SERUM 1.11 MG/DL (0.60-1.30); MAGNESIUM 1.7 MG/DL (1.6-2.4); POTASSIUM 3.9 MMOL/L (3.6-5.0); TOTAL PROTEIN 5.5 GM/DL (6.4-8.2)
[2022-07-25] MEDS: inSUlin ASPART (NovoLOG) 1 UNIT/0.01 ML (CHARGE PER UNIT) SC SCH ×4 (06:26→20:55)
[2022-07-25] MEDS: NS IV 1000 ML 1,000 ML IV SCH ×3 (06:31→21:20)
[2022-07-25] MEDS ORDERED: OMEP20CA18 PO ×2 (07:45→11:29)
[2022-07-25] MEDS ORDERED: LOSA25TA41 PO ×2 (07:45→11:29)
[2022-07-25] MEDS: CLOPIDOGREL 75 MG (PLAVIX) TABLET PO SCH (08:33)
[2022-07-25] MEDS: ASPIRIN 81 MG CHEW (CHILDREN'S ASA) PO SCH (08:33)
[2022-07-25] MEDS ORDERED: GEMF600T88 PO (11:29)
[2022-07-25] MEDS ORDERED: CHOL-34 PO (11:29)
[2022-07-25] MEDS ORDERED: ACET-2267 PO (11:29)
[2022-07-25] MEDS ORDERED: ASPI-1238 PO (11:29)
[2022-07-25] MEDS ORDERED: METF-397 PO (11:29)
--- NOTE | 2022-07-25 12:45 | Progress Note - Cardiology ---
Cardiology SOAP Progress Note Subjective: No cp or palp or syncope or shortness of breath No n/v/d No focal weakness No groin or leg discomfort or discoloration No swelling Objective: I&O/Vital Signs 07/25/22 07/25/22 07/25/22 07/25/22 01:00 01:15 02:00 04:40 Temp 36.6 Pulse 51 71 55 78 Resp 11 15 10 B/P (MAP) 89/71 (77) 86/66 (73) 76/62 (67) Pulse Ox 99 97 98 O2 Delivery Room Air Room Air Room Air 07/25/22 07/25/22 07/25/22 07/25/22 04:56 07:00 07:36 07:47 Pulse 68 76 71 68 Resp 16 12 16 B/P (MAP) 81/48 (59) 94/55 (68) 105/62 (76) Pulse Ox 95 98 96 O2 Delivery Room Air Room Air Room Air 07/25/22 07/25/22 08:10 11:28 Temp 36.7 Pulse 75 Resp 17 B/P (MAP) 100/58 (72) Pulse Ox 96 99 O2 Delivery Room Air Room Air 07/25/22 00:00 Intake Total 90 ml Balance 90 ml Weight (Pounds): 135 Weight (Calculated Kilograms): 61.717523 Constitutional: AAO x 3, well-developed, well-nourished Respiratory: No accessory muscle use; chest expansion is symmetric, chest is bilaterally symmetric, other (good, bilat air entry) Cardiovascular: regular rate-rhythm, S1 and S2, systolic murmur (soft LUKE at card base) Gastrointestional: No tender; soft; No guarding, No rebound; audible bowel sounds Extremities: No clubbing, No cyanosis, No significant edema Neurologic/Psychiatric: oriented x 3, other (moves all limbs equally) Skin: No rash on exposed areas, No ulcerations on exposed areas Results/Procedures: Labs Laboratory Tests 07/24/22 15:17: White Blood Count 8.0, Red Blood Count 4.10L, Hemoglobin 13.0L, Hematocrit 37L, Mean Corpuscular Volume 90, Mean Corpuscular Hemoglobin 32, Mean Corpuscular Hemoglobin Concent 35, Red Cell Distribution Width 12.3, Platelet Count 238, Mean Platelet Volume 10.0, Immature Granulocyte % (Auto) 1, Neutrophils (%) (Auto) 54, Lymphocytes (%) (Auto) 32, Monocytes (%) (Auto) 10, Eosinophils (%) (Auto) 3, Basophils (%) (Auto) 1, Neutrophils # (Auto) 4.3, Lymphocytes # (Auto) 2.6, Monocytes # (Auto) 0.8, Eosinophils # (Auto) 0.2, Basophils # (Auto) 0.0, Immature Granulocyte # (Auto) 0.0, Prothrombin Time 14.1, INR Comment 1.0, Activated Partial Thromboplast Time 34, Sodium Level 137, Potassium Level 3.5L, Chloride Level 102, Carbon Dioxide Level 21, Anion Gap 14, Blood Urea Nitrogen 20H, Creatinine 1.34H, Estimat Glomerular Filtration Rate 55, BUN/Creatinine Ratio 15, Glucose Level 185H, Calcium Level 9.5, Corrected Calcium 9.5, Magnesium Level 1.9, Total Bilirubin 0.4, Aspartate Amino Transf (AST/SGOT) 28, Alanine Aminotransferase (ALT/SGPT) 11, Alkaline Phosphatase 95, Troponin I 3.635*H, Total Protein 7.4, Albumin 4.0 07/24/22 20:53: Glucometer 117H 07/25/22 04:50: White Blood Count 10.3, Red Blood Count 3.07L, Hemoglobin 9.7#L, Hematocrit 28L, Mean Corpuscular Volume 90, Mean Corpuscular Hemoglobin 32, Mean Corpuscular Hemoglobin Concent 35, Red Cell Distribution Width 12.4, Platelet Count 210, Mean Platelet Volume 10.5, Immature Granulocyte % (Auto) 0, Neutrophils (%) (Auto) 79H, Lymphocytes (%) (Auto) 14, Monocytes (%) (Auto) 7, Eosinophils (%) (Auto) 0, Basophils (%) (Auto) 0, Neutrophils # (Auto) 8.2H, Lymphocytes # (Auto) 1.4, Monocytes # (Auto) 0.7, Eosinophils # (Auto) 0.0, Basophils # (Auto) 0.0, Immature Granulocyte # (Auto) 0.0, Sodium Level 138, Potassium Level 3.9, Chloride Level 109H, Carbon Dioxide Level 19L, Anion Gap 10, Blood Urea Nitrogen 17, Creatinine 1.11, Estimat Glomerular Filtration Rate 68, BUN/Creatinine Ratio 15, Glucose Level 131H, Calcium Level 8.5, Corrected Calcium 9.2, Magnesium Level 1.7, Total Bilirubin 0.5, Aspartate Amino Transf (AST/SGOT) 48H, Alanine Aminotransferase (ALT/SGPT) 15, Alkaline Phosphatase 74, Total Protein 5.5L, Albumin 3.1L, Triglycerides Level 102, Cholesterol Level 102, LDL Cholesterol Direct 58, VLDL Cholesterol 20, HDL Cholesterol 21L, Thyroid Stimulating Hormone (TSH) 1.29 07/25/22 10:52: Glucometer 115H Laboratory Tests 07/24/22 15:17 07/25/22 04:50 A/P: Assessment: Ac NSTEMI - card cath on 07/24/22: heavy cor calcification, LMCA ok, LAD 60% ostial and prox, 99% prox dominant LCX (less than 10% post balloon angioplasty and improvement of flow from VICTOR M 1 to VICTOR M 3), diminutive RCA w/o significant disease, LVEDP 22 mmHg, LVEF 50% - echo on 07/25/22: LVEF 55-60%, basal inf hypkinesis, mild to mod MR, PASP 30-35 mmHg DM II Diabetic nephropathy: CKD 3 H/o hyperlipidemia Intolerance to beta-miriam due to low bp Plan: * PCI to dominant LCX (done, see above) * DAPT * Low bp: d/c bb * Replenish lytes as needed * Continue iv fluids to prevent contrast nephropathy but reduce rate * Monitor labs * Hospitalist consult for DM II * Increase activity Clinical Quality Measures AMI/AHF: ASA po Prior to arrival: JOSE Hall MD FACP [facility] Jul 25, 2022 12:45
--- NOTE | 2022-07-25 15:18 | Consultation - Hospitalist ---
HPI History of Present Illness: HPI/Chief Complaint Cali Miller is a 77 year old male with PMH HTN, HLD, T2DM, who presented with chest pain. This was radiating to his left shoulder. He was taken for a heart cath and had a stent placed yesterday. This morning he feels much better. He denies pain. He denies shortness of breath. He says he was given three bags of fluid overnight because his blood pressure was low. He denies lightheadedness and dizziness. He denies any pain or swelling at the catheter insertion site in his groin. Source: patient Exam Limitations: no limitations Date Seen 07/25/22 Attending Physician Francisco Jaeger MD PCP Admitting Physician: F[facility]ad [facility] MD [facility] Attending Physician: Fahad Argueta MD [facility] Referring Physician Date of Admission Jul 24, 2022 at 18:46 Home Medications & Allergies Home Medications Reviewed patient Home Medication Reconciliation performed by pharmacy medication reconciliations heat treatment technician and/or nursing. Patients Allergies have been reviewed. Allergies Allergies Coded Allergies No Known Drug Allergies (Unverified10/14/11) Past Ptpxmxa-Lzsfxc-Btcivm Hx Patient Social History Tobacco Use?: No Smoking Status: Former Smoker Smokeless Tobacco Frequency: Former User Use of E-Cig and/or Vaping dev: No Substance use?: No Alcohol Use?: No Pt feels they are or have been: No Immunizations Up To Date Date of Influenza Vaccine: May 21, 2010 Second COVID19 Vaccination Juancarlos: UNKNOWN Current Status Advance Directives: Yes Advance Directive Location: Family to bring in copy Communicates: Verbally Primary Language: Maltese Preferred Spoken Language: Maltese Is interpretation needed?: No Sensory deficits: Vision impairment Implanted or Applied Medical D: None Past Medical History Surgeries: Abdominal, Gallbladder High Cholesterol Diabetes, Non-Insulin dep Blood Disorders: No Family Medical History No Pertinent Family Hx Review of Systems Constitutional: no symptoms reported EENTM: no symptoms reported Respiratory: no symptoms reported Cardiovascular: chest pain Gastrointestinal: no symptoms reported Physical Exam Physical Exam Vital Signs Vital Signs - First Documented 07/24/22 07/24/22 14:55 17:05 Temp 36.3 Pulse 66 Resp 16 B/P (MAP) 139/87 (104) Pulse Ox 97 O2 Delivery Room Air Capillary Refill : Less Than 3 Seconds Height, Weight, BMI Height: 5'4.00" Weight: 135lbs. oz. 61.791260vt; 21.10 BMI Method:Stated General Appearance: No Apparent Distress, WD/WN HEENT: PERRL/EOMI, Pharynx Normal Neck: Normal Inspection, Supple Respiratory: Chest Non Tender, Lungs Clear, Normal Breath Sounds, No Respi ratory Distress Cardiovascular: Regular Rate, Rhythm, No Edema, No Murmur Gastrointestinal: Normal Bowel Sounds, Non Tender, Soft Extremity: Normal Inspection, No Pedal Edema Neurologic/Psychiatric: Alert, Oriented x3, No Motor/Sensory Deficits, Normal Mood/Affect Skin: Normal Color, Warm/Dry Results Results/Procedures Labs Laboratory Tests 07/24/22 15:17 07/25/22 04:50 Patient resulted labs reviewed. Imaging: Reviewed Imaging Report Assessment/Plan Assessment and Plan Assess & Plan/Chief Complaint NSTEMI CAD HTN HLD Cardiology primary s/p left heart cath with cardiac stenting Started on DAPT Metoprolol Statin Anemia Likely dilutional following IV fluids Monitor T2DM Sliding scale insulin Diagnosis/Problems Diagnosis/Problems (1) NSTEMI (non-ST elevated myocardial infarction) Status: Acute (2) CAD (coronary artery disease) Status: Acute (3) HTN (hypertension) Status: Acute (4) HLD (hyperlipidemia) Status: Acute (5) Anemia Status: Acute (6) T2DM (type 2 diabetes mellitus) Status: Acute Qualifiers: Diabetes mellitus fci insulin use: without middle or intermediate school principal use Clinical Quality Measures AMI/AHF: ASA po Prior to arrival: BREE Burch MD Jul 25, 2022 15:18
[2022-07-25] MEDS: ENOXAPARIN 40 MG/0.4 ML (LOVENOX) SYR SC SCH (21:20)
[2022-07-26] VITALS: BP 89/47
[2022-07-26 01:36] VITALS: BP 118/65
[2022-07-26 04:00] VITALS: BP 109/55
[2022-07-26 04:52] LABS: HEMATOCRIT 25 % (40-54); HEMOGLOBIN 8.7 g/dL (13.3-17.7); MEAN CORPUSCULAR HEMOGLOBIN 32 pg (25-34); MEAN CORPUSCULAR HGB CONC 35 g/dL (32-36); MEAN CORPUSCULAR VOLUME 90 fL (80-99); MEAN PLATELET VOLUME 10.3 fL (9.0-12.2); PLATELET COUNT 178 10^3/uL (130-400); WHITE BLOOD COUNT 8.3 10^3/uL (4.3-11.0)
[2022-07-26 05:13] LABS: CALCIUM 8.6 MG/DL (8.5-10.1); CREATININE SERUM 1.08 MG/DL (0.60-1.30); POTASSIUM 3.3 MMOL/L (3.6-5.0)
[2022-07-26] MEDS: inSUlin ASPART (NovoLOG) 1 UNIT/0.01 ML (CHARGE PER UNIT) SC SCH ×2 (05:34→11:08)
[2022-07-26 07:41] VITALS: BP 100/57
[2022-07-26] MEDS: ASPIRIN 81 MG CHEW (CHILDREN'S ASA) PO SCH (08:10)
[2022-07-26] MEDS: CLOPIDOGREL 75 MG (PLAVIX) TABLET PO SCH (08:10)
--- NOTE | 2022-07-26 10:59 | Progress Note - Cardiology ---
Cardiology SOAP Progress Note Subjective: Sitting up in bed Ambulated several times yesterday without difficulty Family x2 at the bedside No c/o CP, SOB, palpitations No c/o right groin discomfort Objective: I&O/Vital Signs 07/26/22 07/26/22 07/26/22 07/26/22 04:00 07:20 07:41 08:10 Temp 36.9 36.9 Pulse 80 73 67 Resp 22 14 B/P (MAP) 109/55 (73) 100/57 (71) Pulse Ox 94 96 98 O2 Delivery Room Air Room Air Room Air 07/26/22 07/26/22 07/26/22 11:58 13:16 14:50 Temp 37.1 37.1 Pulse 70 66 66 Resp 16 16 B/P (MAP) 96/79 (85) 96/79 Pulse Ox 99 99 O2 Delivery Room Air Room Air 07/25/22 23:59 Intake Total 1600 ml Balance 1600 ml Weight (Pounds): 135 Weight (Calculated Kilograms): 61.835279 Constitutional: AAO x 3, well-developed, well-nourished Respiratory: No accessory muscle use; chest expansion is symmetric, chest is bilaterally symmetric, other (good, bilat air entry) Cardiovascular: regular rate-rhythm, S1 and S2, systolic murmur (soft LUKE at card base) Gastrointestional: No tender; soft; No guarding, No rebound; audible bowel sounds Extremities: No clubbing, No cyanosis, No significant edema Neurologic/Psychiatric: oriented x 3, other (moves all limbs equally) Skin: No rash on exposed areas, No ulcerations on exposed areas Results/Procedures: Labs Laboratory Tests 07/25/22 15:31: Glucometer 147H 07/25/22 20:49: Glucometer 106 07/26/22 04:41: White Blood Count 8.3, Red Blood Count 2.76L, Hemoglobin 8.7L, Hematocrit 25L, Mean Corpuscular Volume 90, Mean Corpuscular Hemoglobin 32, Mean Corpuscular Hemoglobin Concent 35, Red Cell Distribution Width 12.3, Platelet Count 178, Mean Platelet Volume 10.3, Sodium Level 138, Potassium Level 3.3L, Chloride Level 110H, Carbon Dioxide Level 20L, Anion Gap 8, Blood Urea Nitrogen 13, Creatinine 1.08, Estimat Glomerular Filtration Rate 71, BUN/Creatinine Ratio 12, Glucose Level 116H, Calcium Level 8.6 A/P: Assessment: Ac NSTEMI - card cath on 07/24/22: heavy cor calcification, LMCA ok, LAD 60% ostial and prox, 99% prox dominant LCX (less than 10% post balloon angioplasty and improvement of flow from VICTOR M 1 to VICTOR M 3), diminutive RCA w/o significant disease, LVEDP 22 mmHg, LVEF 50% - echo on 07/25/22: LVEF 55-60%, basal inf hypkinesis, mild to mod MR, PASP 30-35 mmHg DM II Diabetic nephropathy: CKD 3 H/o hyperlipidemia Intolerance to beta-miriam due to low bp Plan: * PCI to dominant LCX (done, see above) * DAPT * Low bp: d/c bb * Replenish lytes as needed * D/C IVF * Monitor labs * Has been up ambulating in the halls without difficulty * Hospitalist consult for DM II * Likely d/c home today Clinical Quality Measures AMI/AHF: ASA po Prior to arrival: KANNAN Best Jul 26, 2022 10:59
[2022-07-26] MEDS ORDERED: KCL 20 MEQ TAB (K-DUR) PO NR (11:00)
[2022-07-26] MEDS ORDERED: CLOP75TA28 PO (11:01)
[2022-07-26] MEDS ORDERED: ATOR40TA PO (11:01)
[2022-07-26] MEDS ORDERED: ASPI81TA64 PO (11:01)
--- NOTE | 2022-07-26 11:02 | Discharge Inst-Cardiology ---
Discharge Inst-Cardiac Discharge Medications New Medications: Aspirin (Children's Aspirin) 81 Mg Tab.chew 81 MG PO DAILY, #90 TAB 3 Refills Atorvastatin Calcium (Lipitor) 40 Mg Tablet 40 MG PO HS, #90 TAB 3 Refills Clopidogrel Bisulfate (Clopidogrel) 75 Mg Tablet 75 MG PO DAILY, #90 TAB 3 Refills Continued Medications: Acetaminophen (Tylenol Extra Strength) 500 Mg Tablet 500 MG PO Q8H PRN for PAIN-MILD (1-4), TAB Cholecalciferol (Vitamin D3) (Vitamin D3) 25 Mcg (1000 Unit) Tablet 25 MCG PO DAILY, TAB Metformin HCl (Metformin HCl) 500 Mg Tablet 500 MG PO BID Omeprazole (Omeprazole) 20 Mg Capsule.dr 20 MG PO DAILY Discontinued Medications: Aspirin (Aspirin EC) 81 Mg Tablet.dr 81 MG PO DAILY, TAB Gemfibrozil (Gemfibrozil) 600 Mg Tablet 600 MG PO BID Losartan Potassium (Losartan Potassium) 25 Mg Tablet 25 MG PO 1200 New, Converted or Re-Newed RX: Transmitted to Pharmacy Patient Instructions Patient Instructions: Please schedule follow up appointment to see Dr. Argueta next week KANNAN VARGAS Jul 26, 2022 11:02
[2022-07-26 11:58] VITALS: BP 96/79
--- NOTE | 2022-07-26 14:21 | Progress Note - Cardiology ---
Cardiology SOAP Progress Note Subjective: No shortness of breat No cp or palp or syncope or swelling Malaise and weakness better No n/v/d No focal weakness No leg or groin discomfort or leg discoloration Objective: I&O/Vital Signs 07/26/22 07/26/22 07/26/22 07/26/22 04:00 07:20 07:41 08:10 Temp 36.9 36.9 Pulse 80 73 67 Resp 22 14 B/P (MAP) 109/55 (73) 100/57 (71) Pulse Ox 94 96 98 O2 Delivery Room Air Room Air Room Air 07/26/22 07/26/22 11:58 13:16 Temp 37.1 Pulse 70 66 Resp 16 B/P (MAP) 96/79 (85) Pulse Ox 99 O2 Delivery Room Air 07/26/22 00:00 Intake Total 1600 ml Balance 1600 ml Weight (Pounds): 135 Weight (Calculated Kilograms): 61.934463 Constitutional: AAO x 3, well-developed, well-nourished Respiratory: No accessory muscle use; chest expansion is symmetric, chest is bilaterally symmetric, other (good, bilat air entry) Cardiovascular: regular rate-rhythm, S1 and S2, systolic murmur (soft LUKE at card base) Gastrointestional: No tender; soft; No guarding, No rebound; audible bowel sounds Extremities: No clubbing, No cyanosis, No significant edema Neurologic/Psychiatric: oriented x 3, other (moves all limbs equally) Skin: No rash on exposed areas, No ulcerations on exposed areas Results/Procedures: Labs Laboratory Tests 07/25/22 15:31: Glucometer 147H 07/25/22 20:49: Glucometer 106 07/26/22 04:41: White Blood Count 8.3, Red Blood Count 2.76L, Hemoglobin 8.7L, Hematocrit 25L, Mean Corpuscular Volume 90, Mean Corpuscular Hemoglobin 32, Mean Corpuscular Hemoglobin Concent 35, Red Cell Distribution Width 12.3, Platelet Count 178, Mean Platelet Volume 10.3, Sodium Level 138, Potassium Level 3.3L, Chloride Level 110H, Carbon Dioxide Level 20L, Anion Gap 8, Blood Urea Nitrogen 13, Creatinine 1.08, Estimat Glomerular Filtration Rate 71, BUN/Creatinine Ratio 12, Glucose Level 116H, Calcium Level 8.6 Laboratory Tests 07/24/22 15:17 07/25/22 04:50 07/26/22 04:41 A/P: Assessment: Ac NSTEMI - card cath on 07/24/22: heavy cor calcification, LMCA ok, LAD 60% ostial and prox, 99% prox dominant LCX (less than 10% post balloon angioplasty and improvement of flow from VICTOR M 1 to VICTOR M 3), diminutive RCA w/o significant disease, LVEDP 22 mmHg, LVEF 50% - echo on 07/25/22: LVEF 55-60%, basal inf hypkinesis, mild to mod MR, PASP 30-35 mmHg DM II Diabetic nephropathy: CKD 3 H/o hyperlipidemia Intolerance to beta-miriam due to low bp Plan: * PCI to dominant LCX (done, see above) * DAPT * Low bp: d/c bb * Replenish lytes * D/C IVF * Has been up ambulating in the halls without difficulty * Hospitalist consult for DM II * d/c home today, per pt request Clinical Quality Measures AMI/AHF: ASA po Prior to arrival: JOSE Hall MD FACP FAC CCDS Jul 26, 2022 14:21
[2022-07-26 14:50] VITALS: BP 96/79
--- NOTE | 2022-07-26 14:50 | Cardiology Discharge Summary ---
Diagnosis/Chief Complaint Date of Admission Jul 24, 2022 at 18:46 Date of Discharge Final/Discharge Diagnosis Ac NSTEMI - card cath on 07/24/22: heavy cor calcification, LMCA ok, LAD 60% ostial and prox, 99% prox dominant LCX (less than 10% post balloon angioplasty and improvement of flow from VICTOR M 1 to VICTOR M 3), diminutive RCA w/o significant disease, LVEDP 22 mmHg, LVEF 50% - echo on 07/25/22: LVEF 55-60%, basal inf hypkinesis, mild to mod MR, PASP 30-35 mmHg DM II Diabetic nephropathy: CKD 3 H/o hyperlipidemia Intolerance to beta-miriam due to low bp Chief Complaint/HPI Chief Complaint/HPI 77 yo man with a week or intermittent chest pain, mild to mod severe, midsternal, sometimes associated with diaphoresis, worse with exertion, better with rest, nonradiating, occurring several times a day and lasting up to 15-20 min. No palp or syncope. Exertional short of breath present. No swelling. Please see our progress note of today's date for condition at discharge Discharge Summary Discussion & Recommendations Home Medications Reviewed patient Home Medication Reconciliation performed by pharmacy medication reconciliations orthotics technician and/or nursing. Patients Allergies have been reviewed. Discharge Home Medications: Reviewed and agree with Discharge Medication list on patient's Discharge Instruction sheet Clinical Quality Measures AMI/AHF: ASA po Prior to arrival: JOSE Hall MD FACP FAC CCDS Jul 26, 2022 14:50
--- NOTE | 2022-07-26 16:45 | Progress Note - Hospitalist ---
Subjective HPI/CC On Admission Date Seen by Provider: Jul 26, 2022 Time Seen by Provider: 10:25 Cali Miller is a 77 year old male with PMH HTN, HLD, T2DM, who presented with chest pain. This was radiating to his left shoulder. He was taken for a heart cath and had a stent placed yesterday. This morning he feels much better. He denies pain. He denies shortness of breath. He says he was given three bags of fluid overnight because his blood pressure was low. He denies lightheadedness and dizziness. He denies any pain or swelling at the catheter insertion site in his groin. Subjective/Events-last exam He is feeling better. He denies chest pain and shortness of breath. He has no complaints. Objective Exam Vital Signs Vital Signs Date Time Temp Pulse Resp B/P (MAP) Pulse Ox O2 Delivery O2 Flow Rate FiO2 07/26/22 14:50 37.1 66 16 96/79 99 Room Air Capillary Refill : Less Than 3 Seconds General Appearance: No Apparent Distress Respiratory: Lungs Clear, No Respiratory Distress Cardiovascular: Regular Rate, Rhythm, No Murmur Gastrointestinal: Normal Bowel Sounds, Soft Extremity: Normal Inspection, No Pedal Edema Neurologic/Psychiatric: Alert, Normal Mood/Affect Skin: Normal Color, Warm/Dry Results/Procedures Lab Laboratory Tests 07/26/22 04:41 Patient resulted labs reviewed. Imaging: Reviewed Imaging Report Assessment/Plan Assessment and Plan Assess & Plan/Chief Complaint NSTEMI CAD HTN HLD Cardiology primary s/p left heart cath with balloon angioplasty Continue DAPT Metoprolol Statin Anemia Likely dilutional due to IV fluids Repeat H/H on Monday T2DM Resume Metformin tomorrow Dispo: Discharge home today Diagnosis/Problems Diagnosis/Problems (1) NSTEMI (non-ST elevated myocardial infarction) Status: Acute (2) CAD (coronary artery disease) Status: Acute (3) HTN (hypertension) Status: Acute (4) HLD (hyperlipidemia) Status: Acute (5) Anemia Status: Acute (6) T2DM (type 2 diabetes mellitus) Status: Acute Qualifiers: Diabetes mellitus care home insulin use: without rodent exterminator use Clinical Quality Measures AMI/AHF: ASA po Prior to arrival: BREE Burch MD Jul 26, 2022 16:44
--- NOTE | 2022-08-08 13:07 | Conscious Sedation/ASA ---
08/08/22 1307: Conscious Sedation Pre-Proced ASA Score For ASA 3 and 4: Consider anesthesia and medical clearance. Also, for patients with a history of failed moderate sedation consider anesthesia. Airway Lungs Heart ASA score ASA 1: a normal healthy patient ASA 2: a patient with a mild systemic disease (mid diabetes, controlled hypertension, obesity ASA 3: a patient with a severe systemic disease that limits activity (angina, COPD, prior Myocardial infarction) ASA 4: a patient with an incapacitating disease that is a constant threat to life (CHF, renal failure) ASA 5: a moribund patient not expected to survive 24 hrs. (ruptured aneurysm) ASA 6: a declared brain- patient whose organs are being harvested. For emergent operations, add the letter E after the classification Sedation Plan The patient is an appropriate candidate to undergo the planned procedure, sedation, and anesthesia. The patient immediately re-assessed prior to indication. JOSE ARANGO MD [facility] 08/09/22 1445: Conscious Sedation Pre-Proced ASA Score 2 Mallampati Classification Grade 2 Sedation Plan Analgesia, Amnesia, Plan communicated to team members EDUARAug 08, 2022 13:07 JOSE ARANGO MD [facility] Aug 09, 2022 14:45
--- NOTE | 2022-08-10 18:10 | CARDIAC CATHETERIZATION ---
CARDIAC CATHETERIZATION AND CORONARY INTERVENTION REPORT INDICATION: The patient is a 77-year-old gentleman, who was admitted with acute non-ST elevation myocardial infarction and unstable angina. Due to continuing symptoms, cardiac catheterization was carried out. An informed consent was obtained for cardiac catheterization, possible ad hoc coronary intervention. DESCRIPTION OF PROCEDURE: He was brought to the cardiac catheterization laboratory. Right groin was prepped and draped in the usual sterile fashion. 1% lidocaine was used as local anesthesia. Modified Seldinger technique was used to advance a 6-Serbian sheath into the right femoral artery. A 6-Serbian JL4 catheter was used for left coronary angiography. A 6-Serbian JR4 catheter was used for right coronary angiography. Subsequently, percutaneous intervention was carried out to the left circumflex artery, which was the culprit lesion. Following that, we used a 6-Serbian pigtail catheter for left heart catheterization and left ventricular angiography. The interventional procedure as described below. PERCUTANEOUS INTERVENTION TO A DOMINANT LEFT CIRCUMFLEX ARTERY: The left circumflex artery was exhibiting 99% proximal stenosis. This is the dominant artery. We advanced a 6-Serbian JL4 guide catheter to engage the left coronary artery. We advanced a ChoICE extra support wire across the lesion and the tip was placed in the distal vessel. We carried out balloon angioplasty with 2.5 x 20 mm balloon. This improved the stenosis to less than 30%. We then made multiple attempts in advancing a stent. We tried a GuideLiner. We tried a polly wire. We were not able to advance a stent. We carried out repeat balloon angioplasty with a 2.5 x 20 mm balloon. This covered the proximal and ostial portions of the left circumflex artery. Subsequent angiography revealed less than 10% stenosis at the previous site of 99% stenosis. Flow across the lesion prior to balloon angioplasty was VICTOR M 1. Following balloon angioplasty, the flow is VICTOR M 3. He tolerated the procedure well. The residual stenosis is between 5 and 9%. Following the interventional procedure, the angioplasty equipment was removed. We carried out left heart catheterization and left ventricular angiography with a pigtail catheter. This was pulled back and removed. We carried out angiography of the right femoral artery through the sheath and Mynx was used to achieve hemostasis following sheath removal. He tolerated the procedure well. HEMODYNAMICS: Left ventricular end-diastolic pressure, following coronary angiography was 22 mmHg. There is no significant pressure gradient on pullback across the aortic valve. CORONARY ANGIOGRAPHY: There is heavy coronary calcification involving the proximal and mid portions of all coronary vessels. The left main coronary artery does not exhibit significant obstructive disease. Left anterior descending artery has approximately 60% ostial and proximal stenosis. The mid and distal left anterior descending artery has diffuse moderate disease. The left circumflex artery is dominant. It has 99% proximal and mid vessel stenosis and flow across the lesion was VICTOR M 1. Successful balloon angioplasty was carried out, which improved the stenosis to less than 10% and the distal flow to VICTOR M 3. The right coronary artery is small and nondominant. It does not appear to have significant disease. LEFT VENTRICULAR ANGIOGRAPHY: Left ventricular angiography was carried out in the right anterior oblique projection. Global left ventricular systolic function is well preserved. There appears to be basal inferior hypokinesis. Left ventricular ejection fraction is approximately 50% to 55%. CONCLUSIONS: 1. Heavy coronary calcification. Left main coronary artery does not exhibit significant disease. Left anterior descending artery had 60% ostial and proximal stenosis. A dominant left circumflex artery had 99% proximal stenosis. This was reduced to less than 10% with balloon angioplasty and the flow improved from VICTOR M 1 to VICTOR M 3. A diminutive right coronary artery is nondominant and does not exhibit significant disease. 2. Left ventricular end diastolic pressure 22 mmHg. 3. Left ventricular ejection fraction 50% to 55%. 4. Basal inferior hypokinesis. Job ID: [id number] DocumentID: [id number] Dictated Date: 08/10/2022 11:11:46 Shoe Ironer Date: 08/10/2022 18:07:00 Dictated By: JOSE ARANGO MD; DERICK; FACP; FACC; MIREILLE
== END 2022-07-26 14:37 | disposition home or self-care (01) | DRG 247 ==
LOC: EDUNIT# 14:55 → ER 14:56 → CATH 16:47 → CSD 18:46
PROVIDERS: ADMIT Internal Medicine Cardiovascular Disease; ATTEND Internal Medicine Cardiovascular Disease
PROC: 027034Z Dilation of Coronary Artery, One Artery with Drug-eluting Intraluminal Device, Percutaneous Approach (ICD-10-PCS; principal; 2022-07-24)
PROC: 4A023N7 Measurement of Cardiac Sampling and Pressure, Left Heart, Percutaneous Approach (ICD-10-PCS; 2022-07-24)
PROC: B2111ZZ Fluoroscopy of Multiple Coronary Arteries using Low Osmolar Contrast (ICD-10-PCS; 2022-07-24)
PROC: B2151ZZ Fluoroscopy of Left Heart using Low Osmolar Contrast (ICD-10-PCS; 2022-07-24)
DX: I21.4 Non-ST elevation (NSTEMI) myocardial infarction (principal); I25.110 Atherosclerotic heart disease of native coronary artery with unstable angina pectoris; D64.9 Anemia, unspecified; E78.00 Pure hypercholesterolemia, unspecified; N18.30 Chronic kidney disease, stage 3 unspecified; E11.21 Type 2 diabetes mellitus with diabetic nephropathy; E11.22 Type 2 diabetes mellitus with diabetic chronic kidney disease; I12.9 Hypertensive chronic kidney disease with stage 1 through stage 4 chronic kidney disease, or unspecified chronic kidney disease; E87.6 Hypokalemia; I34.0 Nonrheumatic mitral (valve) insufficiency; H54.7 Unspecified visual loss; Z87.891 Personal history of nicotine dependence; Z79.82 Long term (current) use of aspirin; Z79.84 Long term (current) use of oral hypoglycemic drugs; Z79.899 Other long term (current) drug therapy
CPT/HCPCS: 36415; 71045; 80048; 80053; 80061; 82947; 83735; 84443; 84484; 85025; 85027; 85610; 85730; 93005; 93041; 93306; 93458; 96374

== ENCOUNTER → 2022-08-04 | Outpatient (CLI) | payer MEDICARE, OTHER ==
[~2022-08-04] MED LIST changes: +ACET-2267 PO; +ASPI-1238 PO; +ASPI81TA64 PO; +ATOR40TA PO; +CHOL-34 PO; +CLOP75TA28 PO; +GEMF600T88 PO; +LOSA25TA41 PO; +METF-397 PO; +OMEP20CA18 PO
--- NOTE | 2022-08-04 14:12 | Diagnostic Imaging Report ---
Clinical indications: Patient with left carotid bruit. Comparison: None Exam: Real-time ultrasound carotid Doppler duplex imaging is performed bilaterally with multiple real-time grayscale images obtained in various projections. Additional spectral analysis and color Doppler duple images were also obtained. Peak systolic velocity, ICA/CCA peak systolic ratio, spectral analysis, and vascular morphology are studied. Findings: ARTERY VELOCITY Right Left CCA 0.90 m/s 0.88 m/s ICA 1.29 m/s 2.54 m/s ECA 1.15 m/s 2.71 m/s ICA/CCA 1.4 2.9 VERT.ART Antegrade Antegrade There is bilateral carotid artery atherosclerotic disease with the left carotid artery affected the most. There are elevated velocities involving the proximal cervical left ICA and left ECA with peak systolic velocities of 2.54 m/s and 2.71 m/s, respectively. Impression: 1: There is bilateral carotid artery atherosclerotic disease with the left carotid artery affected the most. There is roughly 50-69% stenosis involving the left ECA and proximal cervical left ICA. 2: The remainder of the vessels show no other significant stenosis. Dictated by: Dictated on workstation # [id number]
== END ==
LOC: RAD 12:26
PROVIDERS: ATTEND Internal Medicine
DX: I65.23 Occlusion and stenosis of bilateral carotid arteries (principal)
CPT/HCPCS: 93880

== ENCOUNTER → 2022-11-18 | Outpatient (RCR) | payer MEDICARE, OTHER | END | disposition home or self-care (01) | LOC: CR 11-11 09:36 | PROVIDERS: ATTEND Surgery | DX: Z29.8 Encounter for other specified prophylactic measures (principal); I25.118 Atherosclerotic heart disease of native coronary artery with other forms of angina pectoris | CPT/HCPCS: 93798 ==

== ENCOUNTER 2022-12-16 09:53 | Outpatient (RCR) | payer MEDICARE, OTHER | END 2022-12-18 | disposition home or self-care (01) | LOC: CR 09:53 | PROVIDERS: ATTEND Surgery | DX: Z29.8 Encounter for other specified prophylactic measures (principal); I25.118 Atherosclerotic heart disease of native coronary artery with other forms of angina pectoris | CPT/HCPCS: 93798 ==

== ENCOUNTER → 2023-01-18 | Outpatient (RCR) | payer MEDICARE, OTHER | END | disposition home or self-care (01) | LOC: CR 12-19 07:42 | PROVIDERS: ATTEND Surgery | DX: Z29.8 Encounter for other specified prophylactic measures (principal); I25.118 Atherosclerotic heart disease of native coronary artery with other forms of angina pectoris | CPT/HCPCS: 93798 ==

== ENCOUNTER → 2023-02-17 | Outpatient (RCR) | payer MEDICARE, OTHER | END | disposition home or self-care (01) | LOC: CR 01-23 14:07 | PROVIDERS: ATTEND Surgery | DX: Z29.8 Encounter for other specified prophylactic measures (principal); I25.118 Atherosclerotic heart disease of native coronary artery with other forms of angina pectoris | CPT/HCPCS: 93798 ==

== ENCOUNTER 2023-02-20 11:27 | Outpatient (RCR) | payer MEDICARE, OTHER | END 2023-03-20 | disposition home or self-care (01) | LOC: CR 11:27 | PROVIDERS: ATTEND Surgery | DX: Z29.8 Encounter for other specified prophylactic measures (principal); I25.118 Atherosclerotic heart disease of native coronary artery with other forms of angina pectoris; Z98.1 Arthrodesis status | CPT/HCPCS: 93798 ==